=== PATIENT | female | born 1955 | race Caucasian/White ===

== ENCOUNTER 2018-06-07 08:22 | Outpatient (CLI) | payer BC ==
[2014-07-06 08:57] VITALS: O2SAT 98
== END 2018-06-07 08:23 | disposition home or self-care (01) ==
LOC: CONVCARE 08:22
PROVIDERS: ATTEND Orthopaedic Surgery
DX: M25.562 Pain in left knee (principal); M25.561 Pain in right knee; M17.0 Bilateral primary osteoarthritis of knee
CPT/HCPCS: 73564

== ENCOUNTER 2018-08-08 05:32 | Inpatient (IN) | payer BC ==
[2018-08-08] MEDS ORDERED: LACTATED RINGERS 1,000 ML IV ONE (06:00)
[2018-08-08] MEDS: SCOPOLAMINE 1.5MG PATCH TD SCH (06:13)
[2018-08-08] MEDS ORDERED: LACTATED RINGERS 1,000 ML IV SCH (07:00)
[2018-08-08] MEDS ORDERED: SODIUM CHLORIDE 20 ML 40 ML ONE (07:02)
[2018-08-08] MEDS ORDERED: MIDAZOLAM 2 MG/2 ML SOL ONE (07:23)
[2018-08-08] MEDS ORDERED: EPHEDRINE SULFATE 50 MG/ML SOL ONE (07:24)
[2018-08-08] MEDS ORDERED: CEFAZOLIN SODIUM 1 GM PDS ONE ×3 (07:24→16:35)
[2018-08-08] MEDS ORDERED: FENTANYL 100MCG/2ML SOL ONE (07:24)
[2018-08-08] MEDS ORDERED: DEXAMETHASONE 20 MG/5 ML (4 MG/ML SOL) ONE (07:27)
[2018-08-08] MEDS ORDERED: PROPOFOL 500 MG/50 ML EMU IV ONE (07:27)
[2018-08-08] MEDS ORDERED: TETRACAINE HCL 1% SOL ONE (07:36)
[2018-08-08] MEDS ORDERED: MORPHINE SULFATE 0.5 MG/ML SOL ONE (07:39)
[2018-08-08] MEDS: BUPIVACAINE LIPOSOME 20 ML SUS ONE ×5 (09:34→11:22)
[2018-08-08] MEDS ORDERED: BUPIVACAINE/EPI 0.5% 10 ML SOL INFIL ONE (10:06)
[2018-08-08] MEDS ORDERED: MAGNESIUM HYDROXIDE 30 ML SUS PO PRN (11:13)
[2018-08-08] MEDS ORDERED: FLEET ENEMA PR PRN (11:13)
[2018-08-08] MEDS ORDERED: ONDANSETRON 4 MG ODT BU PRN (11:13)
[2018-08-08] MEDS ORDERED: ALUMINUM/MAGNESIUM 30 ML SUS PO PRN (11:13)
[2018-08-08] MEDS ORDERED: DIPHENHYDRAMINE 25 MG CAP PO PRN (11:13)
[2018-08-08] MEDS ORDERED: BISACODYL 10 MG SUP PR PRN (11:13)
[2018-08-08] MEDS ORDERED: TEMAZEPAM 15MG 15 MG CAP PO PRN (11:13)
[2018-08-08] MEDS ORDERED: SODIUM CHLORIDE 0.9% 500 ML 500 ML IV PRN (11:13)
[2018-08-08] MEDS ORDERED: ONDANSETRON HCL 4 MG/2 ML SOL IV PRN (11:13)
[2018-08-08] MEDS: ACETAMINOPHEN 500 MG 500 MG TAB PO SCH ×3 (13:20→21:30)
[2018-08-08] MEDS: SODIUM CHLORIDE 0.9% FLUSH 10 ML SOL IV SCH ×2 (13:20→19:09)
[2018-08-08] MEDS: HYDROMORPHONE 1 MG/ML SYRINGE IV PRN ×2 (15:25→21:13)
[2018-08-08] MEDS: DEXTROSE/SALINE 0.45% 1,000 ML IV SCH (15:30)
[2018-08-08] MEDS: DIAZEPAM 5 MG TAB PO PRN (15:32)
[2018-08-08] MEDS ORDERED: SODIUM CHLORIDE 0.9% 100 ML 100 ML IV ONE (16:35)
[2018-08-08] MEDS: CEFAZOLIN SODIUM 1 GM PDS 2 GM in SODIUM CHLORIDE 0.9% 100 ML 100 ML IV SCH (16:42)
[2018-08-08] MEDS: OXYCODONE HYDROCHLORIDE 5 MG TAB PO PRN ×2 (18:28→21:48)
[2018-08-08] MEDS: SENNOSIDES A AND B 8.6 MG TAB PO SCH (21:30)
[2018-08-09] MEDS ORDERED: CEFAZOLIN SODIUM 1 GM PDS ONE (00:23)
[2018-08-09] MEDS ORDERED: SODIUM CHLORIDE 0.9% 100 ML 100 ML IV ONE (00:23)
[2018-08-09] MEDS: CEFAZOLIN SODIUM 1 GM PDS 2 GM in SODIUM CHLORIDE 0.9% 100 ML 100 ML IV SCH (00:29)
[2018-08-09] MEDS: OXYCODONE HYDROCHLORIDE 5 MG TAB PO PRN ×7 (00:38→21:25)
[2018-08-09] MEDS: DEXTROSE/SALINE 0.45% 1,000 ML IV SCH (00:41)
[2018-08-09] MEDS: DIAZEPAM 5 MG TAB PO PRN ×2 (01:00→12:19)
[2018-08-09] MEDS: HYDROMORPHONE 1 MG/ML SYRINGE IV PRN (02:20)
[2018-08-09] MEDS: SODIUM CHLORIDE 0.9% FLUSH 10 ML SOL IV SCH ×3 (03:32→21:23)
[2018-08-09 07:18] LABS: HEMOGLOBIN 11.2 gm/dl (12.0-15.5); MEAN CORPUSCULAR HEMOGLOBIN 30.2 pg (27.0-32.0); MEAN CORPUSCULAR HGB CONC 33.5 gm/dl (32.0-36.0)
[2018-08-09] MEDS: RIVAROXABAN 10 MG TAB PO SCH (09:27)
[2018-08-09] MEDS: ACETAMINOPHEN 500 MG 500 MG TAB PO SCH ×4 (09:27→21:36)
[2018-08-09] MEDS ORDERED: GABAPENTIN 300 MG CAP PO SCH (10:15)
[2018-08-09] MEDS: SENNOSIDES A AND B 8.6 MG TAB PO SCH (21:23)
[2018-08-09] MEDS: GABAPENTIN 300 MG CAP PO SCH (21:23)
[2018-08-10] MEDS: OXYCODONE HYDROCHLORIDE 5 MG TAB PO PRN ×8 (00:26→22:36)
[2018-08-10] MEDS: DIAZEPAM 5 MG TAB PO PRN (02:32)
[2018-08-10] MEDS: SODIUM CHLORIDE 0.9% FLUSH 10 ML SOL IV SCH ×3 (05:53→21:48)
[2018-08-10 07:33] LABS: HEMOGLOBIN 10.4 gm/dl (12.0-15.5); MEAN CORPUSCULAR HEMOGLOBIN 29.5 pg (27.0-32.0); MEAN CORPUSCULAR HGB CONC 32.4 gm/dl (32.0-36.0)
[2018-08-10] MEDS: GABAPENTIN 300 MG CAP PO SCH ×2 (09:44→21:48)
[2018-08-10] MEDS: ACETAMINOPHEN 500 MG 500 MG TAB PO SCH ×4 (09:44→21:48)
[2018-08-10] MEDS: RIVAROXABAN 10 MG TAB PO SCH (09:44)
[2018-08-10] MEDS: SENNOSIDES A AND B 8.6 MG TAB PO SCH (21:48)
[2018-08-11] MEDS: SODIUM CHLORIDE 0.9% FLUSH 10 ML SOL IV SCH ×3 (02:59→17:15)
[2018-08-11] MEDS: OXYCODONE HYDROCHLORIDE 5 MG TAB PO PRN ×6 (02:59→20:54)
[2018-08-11] MEDS: SCOPOLAMINE 1.5MG PATCH TD SCH (06:35)
[2018-08-11 07:33] LABS: HEMOGLOBIN 9.4 gm/dl (12.0-15.5); MEAN CORPUSCULAR HEMOGLOBIN 29.4 pg (27.0-32.0); MEAN CORPUSCULAR HGB CONC 32.1 gm/dl (32.0-36.0)
[2018-08-11] MEDS: RIVAROXABAN 10 MG TAB PO SCH (09:59)
[2018-08-11] MEDS: ACETAMINOPHEN 500 MG 500 MG TAB PO SCH ×4 (09:59→22:01)
[2018-08-11] MEDS: GABAPENTIN 300 MG CAP PO SCH ×2 (09:59→22:01)
[2018-08-11] MEDS ORDERED: SODIUM CHLORIDE 0.9% FLUSH 10 ML SOL IV PRN (11:46)
[2018-08-11] MEDS: SENNOSIDES A AND B 8.6 MG TAB PO SCH (23:06)
[2018-08-12] MEDS: OXYCODONE HYDROCHLORIDE 5 MG TAB PO PRN ×4 (01:42→12:13)
[2018-08-12] MEDS: SODIUM CHLORIDE 0.9% FLUSH 10 ML SOL IV SCH ×3 (03:44→20:43)
[2018-08-12] MEDS: GABAPENTIN 300 MG CAP PO SCH ×2 (08:40→20:43)
[2018-08-12] MEDS: ACETAMINOPHEN 500 MG 500 MG TAB PO SCH ×4 (08:40→20:43)
[2018-08-12] MEDS: RIVAROXABAN 10 MG TAB PO SCH (08:41)
[2018-08-12] MEDS: SENNOSIDES A AND B 8.6 MG TAB PO SCH (20:43)
[2018-08-13] MEDS: SODIUM CHLORIDE 0.9% FLUSH 10 ML SOL IV SCH ×2 (03:15→13:53)
[2018-08-13] MEDS: OXYCODONE HYDROCHLORIDE 5 MG TAB PO PRN (03:24)
[2018-08-13] MEDS ORDERED: HYDROMORPHONE HYDROCHLORIDE 2 MG TAB PO PRN ×2 (08:26→08:33)
[2018-08-13] MEDS: ACETAMINOPHEN 500 MG 500 MG TAB PO SCH ×2 (10:36→13:52)
[2018-08-13] MEDS: GABAPENTIN 300 MG CAP PO SCH ×2 (10:37→20:38)
[2018-08-13] MEDS: RIVAROXABAN 10 MG TAB PO SCH (10:37)
[2018-08-13] MEDS: APAP/HYDROCODONE 1 EACH TABLET PO PRN ×2 (13:27→20:38)
[2018-08-13] MEDS: DIAZEPAM 5 MG TAB PO PRN (18:33)
[2018-08-13] MEDS: SENNOSIDES A AND B 8.6 MG TAB PO SCH (20:38)
[2018-08-14] MEDS: SODIUM CHLORIDE 0.9% FLUSH 10 ML SOL IV SCH (00:24)
[2018-08-14] MEDS: APAP/HYDROCODONE 1 EACH TABLET PO PRN ×2 (02:37→09:25)
[2018-08-14 07:45] VITALS: BP 131/75; PULSE 74; RESP 20; TEMP 98.5; O2SAT 90
[2018-08-14] MEDS: RIVAROXABAN 10 MG TAB PO SCH (09:25)
[2018-08-14] MEDS: GABAPENTIN 300 MG CAP PO SCH (09:25)
== END 2018-08-14 10:30 | disposition swing bed (61) | DRG 302 ==
LOC: ACUTE CARE 05:32
PROVIDERS: ADMIT Orthopaedic Surgery; ATTEND Orthopaedic Surgery
PROC: 0SRC0J9 Replacement of Right Knee Joint with Synthetic Substitute, Cemented, Open Approach (ICD-10-PCS; 2018-08-08)
PROC: F01L5ZZ Range of Motion and Joint Integrity Assessment of Musculoskeletal System - Lower Back / Lower Extremity (ICD-10-PCS; 2018-08-08)
PROC: F02Z3ZZ Grooming/Personal Hygiene Assessment (ICD-10-PCS; 2018-08-08)
PROC: 0SRD0J9 Replacement of Left Knee Joint with Synthetic Substitute, Cemented, Open Approach (ICD-10-PCS; principal; 2018-08-08 08:00)
PROC: 30233N1 Transfusion of Nonautologous Red Blood Cells into Peripheral Vein, Percutaneous Approach (ICD-10-PCS; 2018-08-11)
DX: M17.0 Bilateral primary osteoarthritis of knee (principal); Z96.653 Presence of artificial knee joint, bilateral
CPT/HCPCS: 36415; 73560; 85018; 85027; 94150; 94760; 94762; 99070; J0690; J1100; J2250; J2274; J2405; J3010; P9016; A6232; A9270-GY; J1170; J2704; J3490; Q3014

== ENCOUNTER 2018-08-14 11:15 | Inpatient (IN) | payer BC ==
[2018-08-14] MEDS ORDERED: PATIENT EDUCATION 1 MISC PRN (13:31)
[2018-08-14] MEDS ORDERED: HYDROMORPHONE HYDROCHLORIDE 2 MG TAB PO PRN (13:44)
[2018-08-14] MEDS ORDERED: FLEET ENEMA PR PRN (13:44)
[2018-08-14] MEDS ORDERED: ALUMINUM/MAGNESIUM 30 ML SUS PO PRN (13:44)
[2018-08-14] MEDS ORDERED: DIPHENHYDRAMINE 25 MG CAP PO PRN (13:44)
[2018-08-14] MEDS ORDERED: MAGNESIUM HYDROXIDE 30 ML SUS PO PRN (13:44)
[2018-08-14] MEDS ORDERED: BISACODYL 10 MG SUP PR PRN (13:44)
[2018-08-14] MEDS ORDERED: ONDANSETRON 4 MG ODT BU PRN (13:44)
[2018-08-14] MEDS: APAP/HYDROCODONE 1 EACH TABLET PO PRN ×2 (15:46→22:17)
[2018-08-14] MEDS: GABAPENTIN 300 MG CAP PO SCH (20:11)
[2018-08-14] MEDS: SENNOSIDES A AND B 8.6 MG TAB PO SCH (20:11)
[2018-08-15] MEDS: APAP/HYDROCODONE 1 EACH TABLET PO PRN ×3 (06:02→18:48)
[2018-08-15] MEDS: RIVAROXABAN 10 MG TAB PO SCH (08:48)
[2018-08-15] MEDS: GABAPENTIN 300 MG CAP PO SCH ×2 (08:48→21:56)
[2018-08-15] MEDS: SENNOSIDES A AND B 8.6 MG TAB PO SCH (21:57)
[2018-08-16] MEDS: APAP/HYDROCODONE 1 EACH TABLET PO PRN ×5 (01:12→21:02)
[2018-08-16] MEDS: GABAPENTIN 300 MG CAP PO SCH ×2 (10:05→20:17)
[2018-08-16] MEDS: RIVAROXABAN 10 MG TAB PO SCH (10:05)
[2018-08-16] MEDS: SENNOSIDES A AND B 8.6 MG TAB PO SCH (20:16)
[2018-08-17] MEDS: APAP/HYDROCODONE 1 EACH TABLET PO PRN ×2 (08:01→14:53)
[2018-08-17] MEDS: GABAPENTIN 300 MG CAP PO SCH ×2 (08:01→20:23)
[2018-08-17] MEDS: RIVAROXABAN 10 MG TAB PO SCH (08:01)
[2018-08-17] MEDS: SENNOSIDES A AND B 8.6 MG TAB PO SCH (20:25)
[2018-08-18] MEDS: APAP/HYDROCODONE 1 EACH TABLET PO PRN ×2 (08:34→18:38)
[2018-08-18] MEDS: RIVAROXABAN 10 MG TAB PO SCH (08:35)
[2018-08-18] MEDS: GABAPENTIN 300 MG CAP PO SCH ×2 (08:35→20:12)
[2018-08-18] MEDS: DIAZEPAM 5 MG TAB PO PRN (10:06)
[2018-08-18] MEDS: SENNOSIDES A AND B 8.6 MG TAB PO SCH (20:12)
[2018-08-19] MEDS: GABAPENTIN 300 MG CAP PO SCH ×2 (09:11→20:59)
[2018-08-19] MEDS: RIVAROXABAN 10 MG TAB PO SCH (09:11)
[2018-08-19] MEDS: APAP/HYDROCODONE 1 EACH TABLET PO PRN ×2 (10:33→21:00)
[2018-08-19] MEDS: SENNOSIDES A AND B 8.6 MG TAB PO SCH (21:00)
[2018-08-20] MEDS: APAP/HYDROCODONE 1 EACH TABLET PO PRN ×3 (06:15→20:05)
[2018-08-20] MEDS: RIVAROXABAN 10 MG TAB PO SCH (09:22)
[2018-08-20] MEDS: GABAPENTIN 300 MG CAP PO SCH ×2 (09:23→20:05)
[2018-08-20] MEDS: SENNOSIDES A AND B 8.6 MG TAB PO SCH (20:05)
[2018-08-21] MEDS ORDERED: LIDOCAINE HCL 2% (VISCOUS) 20 ML SOL MT ONE (00:15)
[2018-08-21] MEDS: DIAZEPAM 5 MG TAB PO PRN (00:32)
[2018-08-21] MEDS: RIVAROXABAN 10 MG TAB PO SCH (09:15)
[2018-08-21] MEDS: GABAPENTIN 300 MG CAP PO SCH ×2 (09:16→20:12)
[2018-08-21] MEDS: APAP/HYDROCODONE 1 EACH TABLET PO PRN ×2 (12:54→20:12)
[2018-08-21] MEDS: SENNOSIDES A AND B 8.6 MG TAB PO SCH (21:10)
[2018-08-22] MEDS: APAP/HYDROCODONE 1 EACH TABLET PO PRN ×3 (04:49→20:05)
[2018-08-22] MEDS: GABAPENTIN 300 MG CAP PO SCH ×2 (08:22→20:05)
[2018-08-22] MEDS: RIVAROXABAN 10 MG TAB PO SCH (08:22)
[2018-08-22] MEDS: SENNOSIDES A AND B 8.6 MG TAB PO SCH (21:39)
[2018-08-23] MEDS: APAP/HYDROCODONE 1 EACH TABLET PO PRN ×3 (04:29→19:31)
[2018-08-23] MEDS: RIVAROXABAN 10 MG TAB PO SCH (08:46)
[2018-08-23] MEDS: GABAPENTIN 300 MG CAP PO SCH ×2 (08:46→20:31)
[2018-08-23] MEDS: SENNOSIDES A AND B 8.6 MG TAB PO SCH (20:32)
[2018-08-24] MEDS: APAP/HYDROCODONE 1 EACH TABLET PO PRN ×3 (03:00→19:59)
[2018-08-24] MEDS: RIVAROXABAN 10 MG TAB PO SCH (09:30)
[2018-08-24] MEDS: GABAPENTIN 300 MG CAP PO SCH ×2 (09:30→19:59)
[2018-08-24] MEDS: SENNOSIDES A AND B 8.6 MG TAB PO SCH (20:00)
[2018-08-25] MEDS: APAP/HYDROCODONE 1 EACH TABLET PO PRN ×3 (02:45→19:33)
[2018-08-25] MEDS: GABAPENTIN 300 MG CAP PO SCH ×2 (09:27→21:17)
[2018-08-25] MEDS: RIVAROXABAN 10 MG TAB PO SCH (09:28)
[2018-08-25] MEDS: SENNOSIDES A AND B 8.6 MG TAB PO SCH (21:17)
[2018-08-26] MEDS: APAP/HYDROCODONE 1 EACH TABLET PO PRN ×3 (01:34→20:10)
[2018-08-26] MEDS: RIVAROXABAN 10 MG TAB PO SCH (08:40)
[2018-08-26] MEDS: GABAPENTIN 300 MG CAP PO SCH ×2 (08:40→20:08)
[2018-08-27] MEDS: SENNOSIDES A AND B 8.6 MG TAB PO SCH (01:32)
[2018-08-27] MEDS: APAP/HYDROCODONE 1 EACH TABLET PO PRN ×2 (05:03→13:36)
[2018-08-27] MEDS: RIVAROXABAN 10 MG TAB PO SCH (08:21)
[2018-08-27] MEDS: GABAPENTIN 300 MG CAP PO SCH (08:21)
[2018-08-27 10:31] VITALS: BP 130/68; PULSE 82; RESP 18; TEMP 98.2; O2SAT 95
== END 2018-08-27 15:40 | disposition home or self-care (01) | DRG 351 ==
LOC: ACUTE CARE 12:35
PROVIDERS: ADMIT Family Medicine; ATTEND Family Medicine
PROC: F01L5ZZ Range of Motion and Joint Integrity Assessment of Musculoskeletal System - Lower Back / Lower Extremity (ICD-10-PCS; principal; 2018-08-14)
PROC: F01L0ZZ Muscle Performance Assessment of Musculoskeletal System - Lower Back / Lower Extremity (ICD-10-PCS; 2018-08-14)
PROC: F0130FZ Muscle Performance Assessment of Neurological System - Whole Body using Assistive, Adaptive, Supportive or Protective Equipment (ICD-10-PCS; 2018-08-14)
DX: M17.0 Bilateral primary osteoarthritis of knee (principal); Z96.653 Presence of artificial knee joint, bilateral
CPT/HCPCS: 36415; 71045; 84484; 93005; 94762; 99238; A9270-GY

== ENCOUNTER 2018-09-19 11:31 | Outpatient (CLI) | payer BC | END 2018-09-19 11:32 | disposition home or self-care (01) | LOC: CONVCARE 11:31 ==